=== PATIENT | female | born 1985 | race Two or more races ===

== ENCOUNTER → 2016-03-18 | Day surgery (SDC) | payer BC ==
[~2016-03-18] MED LIST: Diazepam TAB(*) 5 MG ONE; Diazepam TAB(*) 5 MG PO ONE; Onabotulinimtoxina 100 UNITS* VIAL ONE
[2016-03-18 11:32] VITALS: BP 140/93
--- NOTE | 2016-04-11 04:12 | OP ---
DATE OF OPERATION: 03/18/16 - [facility] DATE OF : 83 SURGEON: Kale Chang MD ELECTROENCEPHALOGRAPHIC TECHNOLOGIST: None. ANESTHESIA: None. PRE-OP DIAGNOSIS: Anal fissure. POST-OP DIAGNOSIS: Anal fissure. OPERATIVE PROCEDURE: Botox injection for treatment of anal fissure. SPECIMEN: None. DRAINS: None. COMPLICATIONS: None. DESCRIPTION OF PROCEDURE: The patient was brought to the operating room on the stretcher and positioned left lateral decubitus. After the time-out was performed, the buttocks were spread and finger was placed at the anal verge to palpate the internal and external sphincters. Alcohol prep was used on the skin and then a 30- gauge needle was used to inject the Botox, which was 100 units reconstituted in 2 cc of saline. The injection was performed first at the right lateral aspect of the internal anal sphincter. The patient was the flipped in right lateral decubitus and the process was repeated to the complete the injection of the additional 50 units into the left lateral aspect of the internal anal sphincter. The patient tolerated the procedure well and was transferred back to Recovery in a stable condition. [id number]/[facility] #: [id number] MTDD
== END | disposition home or self-care (01) ==
LOC: OR 10:59
PROVIDERS: ATTEND Surgery
DX: K60.2 Anal fissure, unspecified (principal)
CPT/HCPCS: A9270-GY; J0585

== ENCOUNTER 2016-05-25 19:36 | Emergency (ER) | payer BC ==
[2016-05-25] MEDS ORDERED: NS 0.9% 1000 ML* 1,000 ML IV ONE (20:06)
[2016-05-25] MEDS ORDERED: Ketorolac INJ* 30 MG/ML 1 ML VIAL IV ONE (20:06)
[2016-05-25 20:21] LABS: Hematocrit 44 % (35-47); Hemoglobin 14.6 g/dl (12.0-16.0); Mean Corpuscular HGB Conc 34 g/dl (31-36); Mean Corpuscular Hemoglobin 29 pg (27-31); Mean Corpuscular Volume 87 fL (80-97); Mean Platelet Volume 9 um3 (7.4-10.4); Red Blood Count 5.01 10^6/ul (4.0-5.4); Red Cell Distribution Width 14 % (10.5-15); White Blood Count 9.1 10^3/ul (3.5-10.8)
[2016-05-25 20:36] LABS: ALT 12 U/L (7-52); AST 15 U/L (13-39); Albumin 4.7 g/dL (3.2-5.2); Alkaline Phosphatase 52 U/L (34-104); Anion Gap 5 mmol/L (2-11); BUN/Creatinine Ratio 15.5 (8-20); Blood Urea Nitrogen 13 mg/dL (6-24); CO2 Carbon Dioxide 25 mmol/L (22-32); Calcium 9.4 mg/dL (8.6-10.3); Chloride 105 mmol/L (101-111); EGFR African American 101.7 (>60); EGFR Non-African American 79.1 (>60); Globulin 2.7 g/dL (2-4); Glucose 100 mg/dL (70-100); Potassium 3.8 mmol/L (3.5-5.0); Sodium 135 mmol/L (133-145); Total Protein 7.4 g/dL (6.4-8.9)
--- NOTE | 2016-05-25 21:23 | RAD ---
INDICATION: Right lower quadrant pain COMPARISON: Pelvic ultrasound dated May 22, 2016 TECHNIQUE: Real-time transabdominal and transvaginal ultrasound examination of the female pelvis including grayscale and Doppler color flow imaging. FINDINGS: Uterus: The uterus measures 9 x 4.2 x 4.3 cm. At the fundal height endometrium there is an isoechoic structure measuring 3.4 x 2.3 x 1.8 cm similar appearance to the previous ultrasound, likely a submucosal fibroid. Only the superior most portion of the IUD is visualized at the mid-level uterus. Ovaries: The right and left ovary measure 3.8 x 2.7 4.1 cm and 3.2 x 3.0 x 2.6 cm, respectively. Normal arterial and venous waveforms are identified. Appearance is within normal limits for the patient's age. There is no free fluid in the cul-de-sac. IMPRESSION: 1. Likely submucosal fundal height fibroid similar in appearance to the previous ultrasound. 2. Only the superior tip of the IUD was visualized at the mid-level uterus consistent with images acquired on May 22, 2016. 3. Otherwise normal and age-appropriate pelvic ultrasound.
--- NOTE | 2016-05-25 21:28 | ED ---
Ramin King Billy, scribed for Daniel Jones MD on 05/25/16 at 2001 . GI/ HPI - HPI Summary HPI Summary: Patient is a 30 year-old female coming to [facility] presenting with sharp right- sided abdominal pain for the last 1.5 hours. Severity 9/10. Patient states that she recently had an ultrasound which showed a 4.8cm ovarian cyst, and she states that her pain tonight is the same as previous episodes. She also has nausea tonight. Patient states that she has had vaginal spotting for the last week. Patient has an IUD. - History of Current Complaint Chief Complaint: EDOBProblems Time Seen by Provider: 05/25/16 19:56 Stated Complaint: ABD PAIN Hx Obtained From: Patient Onset/Duration: Started Hours Ago, Still Present Timing: Constant Severity: Moderate Current Severity: Moderate Pain Intensity: 9 Pain Characteristics: Sharp Associated Signs and Symptoms: Positive: Nausea Aggravating Factor(s): Nothing Alleviating Factor(s): Nothing - Allergy/Home Medications Allergies/Adverse Reactions: Allergies Allergy/AdvReac Type Severity Reaction Status Date / Time Acetaminophen [From Vicodin] Allergy Vomiting Verified 12/03/13 20:55 Hydrocodone [From Vicodin] Allergy Vomiting Verified 12/03/13 20:55 Midazolam [From Versed] Allergy See Comment Verified 12/03/13 20:55 PMH/Surg Hx/FS Hx/Imm Hx History: Reports: Other Problems/Disorders - ovarian cysts Opthamlomology History: Denies: Hx Legally Blind EENT History: Denies: Hx Hearing Problem Infectious Disease History: No Infectious Disease History: Denies: Traveled Outside the [place] in Last 30 Days - Family History Known Family History: Negative: Cardiac Disease, Hypertension, Diabetes - Social History Alcohol Use: Weekly Substance Use Type: Reports: None Smoking Status (MU): Never Smoked Tobacco Have You Smoked in the Last Year: No Review of Systems Positive: Abdominal Pain, Nausea Positive: see HPI All Other Systems Reviewed And Are Negative: Yes Physical Exam Triage Information Reviewed: Yes Vital Signs On Initial Exam: Initial Vitals Temp Pulse Resp BP Pulse Ox 96.7 F 75 18 138/86 100 05/25/16 19:38 05/25/16 19:38 05/25/16 19:38 05/25/16 19:38 03/26/17 19:38 Vital Signs Reviewed: Yes Appearance: Positive: Well-Appearing, Pain Distress - mild discomfort Skin: Positive: Warm Head/Face: Positive: Normal Head/Face Inspection Eyes: Positive: CORNEL ENT: Positive: Hearing grossly normal Neck: Positive: Supple Respiratory/Lung Sounds: Positive: Breath Sounds Present Cardiovascular: Positive: RRR Abdomen Description: Positive: Soft, Other: - mild rlq tenderness. Negative: Distended, Guarding Bowel Sounds: Positive: Present Musculoskeletal: Positive: Strength/ROM Intact Neurological: Positive: Sensory/Motor Intact, Alert, Oriented to Person Place, Time Psychiatric: Positive: Affect/Mood Appropriate Diagnostics - Vital Signs Vital Signs Temp Pulse Resp BP Pulse Ox 05/25/16 19:38 96.7 F 75 18 138/86 100 - Laboratory Lab Results: Lab Results 05/25/16 05/25/16 Range/Units 20:10 20:10 WBC 9.1 (3.5-10.8) 10^3/ul RBC 5.01 (4.0-5.4) 10^6/ul Hgb 14.6 (12.0-16.0) g/dl Hct 44 (35-47) % MCV 87 (80-97) fL MCH 29 (27-31) pg MCHC 34 (31-36) g/dl RDW 14 (10.5-15) % Plt Count 264 (150-450) 10^3/ul MPV 9 (7.4-10.4) um3 Neut % (Auto) 64.6 (38-83) % Lymph % (Auto) 26.0 (25-47) % [place] % (Auto) 8.2 (1-9) % Eos % (Auto) 0.8 (0-6) % Baso % (Auto) 0.4 (0-2) % Absolute Neuts (auto) 5.9 (1.5-7.7) 10^3/ul Absolute Lymphs (auto) 2.4 (1.0-4.8) 10^3/ul Absolute Monos (auto) 0.7 (0-0.8) 10^3/ul Absolute Eos (auto) 0.1 (0-0.6) 10^3/ul Absolute Basos (auto) 0 (0-0.2) 10^3/ul Absolute Nucleated RBC 0 10^3/ul Nucleated RBC % 0 Sodium 135 (133-145) mmol/L Potassium 3.8 (3.5-5.0) mmol/L Chloride 105 (101-111) mmol/L Carbon Dioxide 25 (22-32) mmol/L Anion Gap 5 (2-11) mmol/L BUN 13 (6-24) mg/dL Creatinine 0.84 (0.51-0.95) mg/dL Est GFR ( Amer) 101.7 (>60) Est GFR (Non-Af Amer) 79.1 (>60) BUN/Creatinine Ratio 15.5 (8-20) Glucose 100 (70-100) mg/dL Calcium 9.4 (8.6-10.3) mg/dL Total Bilirubin 0.40 (0.2-1.0) mg/dL AST 15 (13-39) U/L ALT 12 (7-52) U/L Alkaline Phosphatase 52 (34-104) U/L Total Protein 7.4 (6.4-8.9) g/dL Albumin 4.7 (3.2-5.2) g/dL Globulin 2.7 (2-4) g/dL Albumin/Globulin Ratio 1.7 (1-3) Beta HCG, Quant < 0.60 mIU/mL Result Diagrams: 05/25/16 20:10 05/25/16 20:10 Lab Statement: Any lab studies that have been ordered have been reviewed, and results considered in the medical decision making process. - Ultrasound No standard instances Ultrasound Interpretation Completed By: Radiologist - PELVIC ULTRASOUND: 1. Likely submucosal fundal height fibroid similar in appearance to the previous ultrasound. 2. Only the superior tip of the IUD was visualized at the mid-level uterus consistent with images acquired on May 22, 2016. 3. Otherwise normal and age-appropriate pelvic ultrasound. Re-Evaluation - Re-Evaluation First Eval Change: Improved - results d/w pt GIGU Course/Dx - Diagnoses Provider Diagnoses: Abdominal pain Discharge - Discharge Plan Condition: Stable Disposition: HOME Patient Education Materials: Abdominal Pain (ED), Ovarian Cyst (ED) Referrals: Gt Echeverria MD [Primary Care Provider] - The documentation as recorded by the Ramin velázquez Billy accurately reflects the service I personally performed and the decisions made by , Daniel Jones MD.
[2016-05-25 23:30] VITALS: BP 127/75
== END 2016-05-25 21:40 | disposition home or self-care (01) ==
LOC: ED 19:36
DX: R10.9 Unspecified abdominal pain (principal)
CPT/HCPCS: 36415; 76856; 80053; 84702; 85025; 96374; 99282; J1885

== ENCOUNTER 2016-07-05 15:34 | Emergency (ER) | payer BC ==
[2016-07-05 16:09] VITALS: BP 128/78
--- NOTE | 2016-07-05 16:17 | UC ---
Lower Extremity/Ankle HPI - HPI Summary HPI Summary: Injured R ankle on obstacle course this morning while sliding down object. Limping with difficulty. Did not feel a twist, simply a hard landing. Denies hx of sprains or fx on that ankle. - History of Current Complaint Stated Complaint: ANKLE INJURY Time Seen by Provider: 07/05/16 16:03 Hx Obtained From: Patient Hx Last Menstrual Period: 06/22/16 ?: No Onset/Duration: Sudden Onset Severity Initially: Moderate Severity Currently: Moderate Aggravating Factor(s): Standing, Ambulation Alleviating Factor(s): Rest Able to Bear Weight: Yes - Allergies/Home Medications Allergies/Adverse Reactions: Allergies Allergy/AdvReac Type Severity Reaction Status Date / Time Acetaminophen [From Vicodin] Allergy Vomiting Verified 12/03/13 20:55 Hydrocodone [From Vicodin] Allergy Vomiting Verified 12/03/13 20:55 Midazolam [From Versed] Allergy See Comment Verified 12/03/13 20:55 PMH/Surg Hx/FS Hx/Imm Hx - Surgical History Surgical History: None - Family History Known Family History: Negative: Cardiac Disease, Hypertension, Diabetes - Social History Occupation: Employed Full-time - [employer] Alcohol Use: Weekly Substance Use Type: None Smoking Status (MU): Never Smoked Tobacco Have You Smoked in the Last Year: No Review of Systems Constitutional: Negative Skin: Negative Eyes: Negative ENT: Negative Respiratory: Negative Cardiovascular: Negative Gastrointestinal: Negative Genitourinary: Negative Motor: Negative Neurovascular: Negative Musculoskeletal: Arthralgia Neurological: Negative Psychological: Negative All Other Systems Reviewed And Are Negative: Yes Physical Exam Triage Information Reviewed: Yes Appearance: Well-Appearing, No Pain Distress, Well-Nourished Vital Signs: Initial Vital Signs Temp 98.6 F 07/05/16 16:04 Pulse 93 07/05/16 16:04 Resp 18 07/05/16 16:04 BP 128/78 07/05/16 16:04 Pulse Ox 100 07/05/16 16:04 Vital Signs Reviewed: Yes Eye Exam: Normal Eyes: Positive: Conjunctiva Clear ENT Exam: Normal ENT: Positive: Normal ENT inspection, Hearing grossly normal, Pharynx normal, TMs normal Dental Exam: Normal Neck exam: Normal Neck: Positive: Supple, Nontender, No Lymphadenopathy Respiratory Exam: Normal Respiratory: Positive: Chest non-tender, Lungs clear, Normal breath sounds, No respiratory distress, No accessory muscle use Cardiovascular Exam: Normal Cardiovascular: Positive: RRR, No Murmur Musculoskeletal Exam: Other - L lateral malleolus tenderness, pain with tibial squeeze Musculoskeletal: Positive: ROM Intact Neurological Exam: Normal Psychological Exam: Normal Skin Exam: Normal Lower Extremity Course/Dx - Differential Dx/Diagnosis Provider Diagnoses: R ankle sprain Discharge - Discharge Plan Condition: Stable Disposition: HOME Patient Education Materials: Ankle Sprain (ED) Forms: *Work Release Referrals: Gt Echeverria MD [Primary Care Provider] - 2 Weeks Additional Instructions: Please see your primary care office in 1-2 weeks to recheck your ankle and discuss whether you could benefit from physical therapy. Sometimes "high" ankle sprains (up where your pain is) have a longer healing time. Use ice and elevation along with ibuprofen for pain control.
--- NOTE | 2016-07-05 16:44 | RAD ---
INDICATION: Inability to bear weight after a fall COMPARISON: None. TECHNIQUE: 3 views of the right ankle were obtained. FINDINGS: There is a small amount of swelling overlying the fibular malleolus. The bones are normal alignment. Joint spaces appear maintained. No fracture is seen. IMPRESSION: MILD SOFT TISSUE SWELLING OVERLYING THE FIBULAR MALLEOLUS WITHOUT RADIOGRAPHICALLY APPARENT FRACTURE OR DISLOCATION If the patient's symptoms persist, follow-up imaging is recommended.
== END 2016-07-05 17:03 | disposition home or self-care (01) ==
LOC: UCEAST 15:34
DX: S93.401A Sprain of unspecified ligament of right ankle, initial encounter (principal); Y93.A5 Activity, obstacle course; X58.XXXA Exposure to other specified factors, initial encounter
CPT/HCPCS: 99213; G0463

== ENCOUNTER 2016-08-21 11:10 | Observation (INO) | payer BC ==
[2016-08-21] MEDS ORDERED: Scopolamine 1.5 mg* PATCH ONE (11:34)
[2016-08-21] MEDS ORDERED: Ibuprofen TAB* 400 MG ONE (11:34)
[2016-08-21] MEDS ORDERED: Ondansetron INJ* 2 MG/ML VIAL ONE ×3 (11:34→17:55)
[2016-08-21 11:41] LABS: UR Preg Internal Control QC Line Present
[2016-08-21] MEDS ORDERED: EPHEDrine (Pressors)* 50 MG/ML VIAL ONE (12:27)
[2016-08-21] MEDS ORDERED: Ketorolac INJ* 30 MG/ML 1 ML VIAL ONE ×4 (12:27→12:59)
[2016-08-21] MEDS ORDERED: Lidocaine 2% PF * 5 ML VIAL ONE (12:27)
[2016-08-21] MEDS ORDERED: Propofol* 10 MG/ML 20 ML BTL IV PUSH ONE (12:27)
[2016-08-21] MEDS ORDERED: Propofol* 500 MG/50 ML BTL ONE (12:27)
[2016-08-21] MEDS ORDERED: Dexamethasone IV* 4 MG/ML 1 ML (4 MG) ONE (12:27)
[2016-08-21] MEDS ORDERED: fentaNYL* 50 MCG/ML 2 ML VIAL (100 MCG VIAL) ONE ×4 (12:27→16:54)
[2016-08-21] MEDS ORDERED: KETAMINE HCL* 50 MG/ML 10 ML VIAL ONE (12:28)
[2016-08-21] MEDS ORDERED: Succinylcholine* 20 MG/ML 10 ML VIAL ONE (12:29)
[2016-08-21] MEDS ORDERED: Atropine 1MG/ML INJ* 1 ML VIAL ONE (12:29)
[2016-08-21] MEDS ORDERED: Sevoflurane* 1 BTL ONE (12:39)
[2016-08-21] MEDS: LORazepam TAB(*) 1 MG PO SCH ×2 (12:41→19:36)
[2016-08-21] MEDS ORDERED: Clindamycin 900 MG IVPREMIX(* 900 MG/50 ML SDV IV ONE (12:47)
[2016-08-21] MEDS ORDERED: Iohexol 350 (CONTRAST) 200 ML MDV IV ONE (12:59)
[2016-08-21] MEDS ORDERED: Lidocaine 1% INJ* 10 MG/ML 30 ML SDV ONE (13:00)
[2016-08-21] MEDS ORDERED: nitroGLYCERIN DRIP* 250 ML ONE (13:00)
[2016-08-21] MEDS ORDERED: Heparin 2 UNITS/ML IVPREMIX* 3,000 ML IV ONE (13:00)
[2016-08-21] MEDS ORDERED: fentaNYL* 50 MCG/ML 5 ML VIAL (250 MCG VIAL) ONE (15:10)
[2016-08-21] MEDS ORDERED: HYDROmorphone* 1 MG/ML 1 ML SYR ONE ×5 (15:47→19:33)
[2016-08-21] MEDS ORDERED: HYDROmorphone* 1 MG/ML 1 ML SYR IV PRN ×2 (16:15→19:36)
[2016-08-21] MEDS ORDERED: Ondansetron INJ* 2 MG/ML VIAL IV PRN ×2 (16:15→16:36)
[2016-08-21] MEDS ORDERED: Acetaminophen IV 1GM/100ML * 100 ML IVPB ONE (16:15)
[2016-08-21] MEDS ORDERED: HYDROmorphone PCA* 20 MG/20 ML PCA.SYRING ONE (16:17)
[2016-08-21] MEDS ORDERED: Acetaminophen IV 1GM/100ML * 100 ML ONE (16:20)
[2016-08-21] MEDS ORDERED: Acetaminophen TAB* 325 MG PO PRN (16:36)
[2016-08-21] MEDS: fentaNYL* 50 MCG/ML 2 ML VIAL (100 MCG VIAL) IV PRN ×4 (16:41→17:02)
[2016-08-21] MEDS ORDERED: LORazepam INJ* 2 MG/ML 1 ML VIAL IV PUSH ONE (18:00)
--- NOTE | 2016-08-21 18:27 | HP ---
CC: Dr. Lopes; Dr. Mendoza * HISTORY AND PHYSICAL: DATE OF ADMISSION: 08/21/16 PRIMARY CARE PROVIDER: Dr. Lopes. ATTENDING PHYSICIAN WHILE IN THE HOSPITAL: Onelia Mancera MD * (report dictated by Tremaine Mills NP). CHIEF COMPLAINT: Uterine fibroid embolization. HISTORY OF PRESENT ILLNESS: Ms. Alvarez is a 30-year-old female patient who for some time has been having difficulty with heavy menstruation. In addition to this, also has been having trouble with uterine fibroids. She has a history of EDS, that is Soto-Danlos syndrome. She came under the care of Dr. Mendoza as she has been again having significant bleeding with her menses and having significant pain. The patient had done extensive research and wanted to pursue UFE. Dr. Mendoza did refer the patient to Dr. Kulkarni to go over options for uterine fibroids as she was of child-bearing age and wanted to make sure that she was making an informed choice and after discussion with Dr. Kulkarni, Dr. Mendoza, and the patient reviewing the different options, she did decide and ultimately opt to go with the UFE which she underwent today. She was evaluated in the PACU. She is denying having any chest pain or shortness of breath, but she says she has a significant amount of cramping and it feels like her menstrual cramps in the pelvic area. She denies any groin pain or pain at the puncture site from the UFE. She denies having any nausea or any vomiting. Denies having any recent fevers or cough. She says that besides the pain, she is feeling well. Denies any lightheadedness or dizziness. We were asked to evaluate for admission. PAST MEDICAL HISTORY: Significant for: 1. Uterine fibroids. 2. EDS. PAST SURGICAL HISTORY: 1. She just had a UFE done today. 2. She has had a left knee arthroscopy. HOME MEDICATIONS: According to the list that she provided include: 1. Fexofenadine 1 tablet p.o. daily as needed. 2. B12 injection monthly. 3. Vitamin C 500 mg p.o. daily. ALLERGIES TO MEDICATIONS: Include VICODIN and VERSED. FAMILY HISTORY: Reviewed and noncontributory. SOCIAL HISTORY: She does not smoke. She occasionally drinks alcohol. Surrogate decision maker is her mother. REVIEW OF SYSTEMS: There is no documented fever. She denies having any significant weight change. There was no double vision. She denies having any rhinorrhea. No sore throat. No thyroid enlargement. Denies having any chest pain. There is no orthopnea. No nocturnal dyspnea. There is no abdominal pain. No nausea. No vomiting. No dysuria. No frequency. There is no seizure. No loss of consciousness. No pruritus and no skin ulcerations. Review of 14 systems completed, all others negative. PHYSICAL EXAMINATION GENERAL: At this time, Ms. Alvarez is a 30-year-old female patient. She is sitting in the PACU stretcher. She does not appear to be in any acute distress. She is awake and alert. VITAL SIGNS: Blood pressure 130/68, pulse 86, respirations 16, O2 sat 99%, and temperature 98.8. HEENT: Head is atraumatic and normocephalic. Eyes: EOMs are intact. Sclerae are anicteric and not pale. Throat: Oral mucosa appears to be moist. No oropharyngeal erythema. NECK: Supple. LUNGS: Clear to auscultation. No wheezes, rales, or rhonchi. HEART: Sounds S1, S2. Regular rate and rhythm. No murmurs, rubs, or gallops. ABDOMEN: Soft, it was flat. Bowel sounds hypoactive. EXTREMITIES: Distal CSM checks are intact to lower extremities. She can move the right lower extremity and the left lower extremity, but right now she is lying in a flat position because of the recent UFE and the activity restrictions. NEUROLOGIC: She is awake, alert, and oriented x3. Tongue midline. Grinder are equal. No gross focal deficits. SKIN: Intact with the exception to her right groin, she has a puncture site from the UFE that is clean, dry, and intact. Distal CSM checks are intact. LABORATORY DATA: Preoperatively showed a negative test. She had a WBC of 9.1, RBC of 5.01, hemoglobin 14.6, hematocrit 44, platelet count of 264, 000. Sodium 138, potassium 4.1, chloride 106, bicarb 26, BUN 16, creatinine 0.8. Urine preop was negative. Old medical records were reviewed. ASSESSMENT AND PLAN: Ms. Alvarez is a 30-year-old female patient coming in to the vascular services for an elective uterine fibroid embolization today, procedure was underwent by Dr. Mendoza. We were asked to evaluate for admission. She will be admitted under observation status for: 1. Uterine fibroid embolization: I will defer the management of this to Dr. Mendoza and his team. The 21 DEALER has been ordered for pain management. I have ordered some p.r.n. Zofran for the patient. 2. Uterine fibroids: She can follow up with Dr. Mendoza and her primary HYDROLOGY PROFESSOR. 3. Soto-Danlos syndrome: At this point, again we will continue with her current medical regimen. No active issues. 3. History of depression, anxiety: Continue Wellbutrin. 4. Code status: Full code. 5. Fluids, electrolytes, and nutrition: She can have a regular diet. TIME SPENT: Time spent on the admission was 40 minutes; greater than half the time was spent [id number] with the patient obtaining my history and physical, other half the time spent going over the plan of care with the patient and implementing plan of care. I did discuss the plan of care with my attending, Dr. Mancera; she is in agreement. TREMAINE MILLS, KARISSA [id number]/[facility] #: [id number] SIMONE
[2016-08-21] MEDS ORDERED: NS 0.9% 1000 ML* 1,000 ML IVPB SCH (19:38)
[2016-08-21] MEDS ORDERED: HYDROmorphone PCA* 20 MG/20 ML PCA.SYRING PCA SCH (20:00)
[2016-08-21] MEDS ORDERED: PROCHLORPERAZINE INJ 5 MG/ML 2 ML VIAL IV PRN (20:05)
[2016-08-21] MEDS ORDERED: PROCHLORPERAZINE INJ 5 MG/ML 2 ML VIAL ONE (20:08)
[2016-08-21] MEDS ORDERED: Naloxone* 0.4 MG/ML 1 ML VIAL IV PUSH ONE (20:47)
[2016-08-21] MEDS: Naloxone* 0.4 MG/ML 1 ML VIAL ONE ×2 (20:51→21:25)
[2016-08-21] MEDS: Ondansetron INJ* 2 MG/ML VIAL IV SCH (20:58)
[2016-08-21] MEDS ORDERED: Ketorolac INJ* 15 MG/ML 1 ML VIAL IV PUSH SCH (21:00)
[2016-08-21] MEDS ORDERED: Naloxone* 0.4 MG/ML 1 ML VIAL IV PUSH PRN (21:54)
[2016-08-21] MEDS: NS 0.9% 1000 ML* 1,000 ML IV SCH (23:00)
[2016-08-22] MEDS: Ondansetron INJ* 2 MG/ML VIAL IV SCH (02:47)
[2016-08-22] MEDS ORDERED: Ketorolac INJ* 30 MG/ML 1 ML VIAL IV PUSH SCH (03:00)
[2016-08-22] MEDS: NS 0.9% 1000 ML* 1,000 ML IV SCH (06:11)
[2016-08-22] MEDS ORDERED: Metoclopramide IV* 5 MG/ML 2 ML VIAL IV ONE (06:20)
[2016-08-22] MEDS ORDERED: Metoclopramide IV* 5 MG/ML 2 ML VIAL ONE (06:25)
--- NOTE | 2016-08-22 08:05 | PN ---
Progress Note - Progress Note Date of Service: 08/22/16 SOAP: Subjective: Pain improved. About 4/10 when not moving too much. No nausea or emesis. Has eaten solid food (including [place] soup). +void. Required dose of Narcan O/N for O2 saturation of 34% Objective: Selected Entries 08/22/16 03:10 Temperature 98.2 F Temperature Oral Source Pulse Rate 70 Respiratory 16 Rate Blood Pressure 112/64 (mmHg) O2 Sat by Pulse 100 Oximetry NAD, AAO x 3 Low abdomen is soft, minimally tender to palpation +Ecchymosis at groin, soft, mildly tender to palpation 2+ pulse right HEAT SET OPERATOR, pop, DP Assessment: 30 YOF POD #1 Uterine Fibroid Embolization with pain and nausea now reasonably controlled. Plan: 1. Transition from IV to PO. 2. Encourage ambulation with assistance. 3. Diet. 4. IR to see patient again late morning/early p.m.
[2016-08-22] MEDS ORDERED: oxyCODONE/Acetamin 5/325 MG* TAB PO PRN (08:07)
[2016-08-22] MEDS ORDERED: Ketorolac TAB * 10 MG TAB PO SCH (09:00)
[2016-08-22] MEDS ORDERED: Ondansetron TAB* 4 MG PO SCH (09:00)
[2016-08-22] MEDS ORDERED: BuPROPion XL* 150 MG TAB.XL PO SCH ×2 (09:00)
[2016-08-22 12:50] VITALS: BP 121/71
--- NOTE | 2016-08-22 14:10 | RAD ---
CPT II Codes: 6045F Procedure(s) performed: * Pelvic arteriogram including the lower abdominal aorta, bilateral iliac arteries including the proximal portions of the superficial femoral arteries and femoral profundi. * Catheter arteriography of the bilateral uterine arteries. * Catheter embolization of the bilateral uterine arteries. Date of service: August 21, 2016 Indication for procedure: Heavy vaginal bleeding in the presence of at least one endometrial fibroid. Comparison: Most recent pelvic ultrasound May 25, 2016 Contrast: 95 mL Omnipaque 300 Fluoroscopy Time: 31.1 minutes Vessels Accessed: Percutaneous access was obtained with ultrasound guidance in the right common femoral artery in the retrograde. Catheter arteriography, with the catheter tip located within the lumen of the following arteries, was performed at the Aorta, Bilateral Internal Iliac Arteries and Bilateral Uterine Arteries. Anesthesia: Anesthesia support was provided by anesthesiology. Please see anesthesiology note for details. Conscious sedation time: Timeout: 1330 hours Case end: 1545 hours Total conscious sedation time: 2 hours and 15 minutes Additional medications: * 400 mcg IA nitroglycerin injected intermittently throughout the course of the procedure to alleviate arterial spasm. * Intra-arterial Toradol, 15 mg injected into each uterine artery, for a total of 30 mg intra-arterial.. * Intravenous Toradol, 30 mg. * Transdermal scopolamine patch 1.5 mg applied to the mastoid process prior to the procedure beginning. * A total of 4 mg Zofran was administered intravenously. PROCEDURE NOTE AND INTRAPROCEDURAL IMAGING FINDINGS: Immediately prior to the procedure the patient signed consent after thoroughly discussing all risks and benefits. The patient was positioned on the fluoroscopy table in the supine position and the bilateral groins were shaved, prepped and draped in standard sterile fashion. Using fluoroscopic imaging the location of the right common femoral head was marked externally with a skin marker on the patient's groin. Utilizing sonographic guidance and palpation the right common femoral artery was cannulated overlying the right femoral head with an 21-gauge needle. An ultrasound image was saved. A microwire was slowly and smoothly advanced to the aortic bifurcation under fluoroscopic imaging. No buckling of the wire was visualized to indicate dissection. Over the wire a 5-Burundian catheter was advanced into the artery, the inner stiffener removed and the microwire was replaced with a 0.035" Bentsen wire which was advanced into the aorta. Finally the 5 Burundian catheter was exchanged for a 5 Burundian sidearm sheath. Over the 0.035" Bentsen wire a "pigtail" multi sidehole injection catheter was advanced to the infrarenal abdominal aorta. An aortogram was performed visualizing the lower abdominal aorta and complete bilateral iliac arterial system as far as the bifurcation of the femoral arteries. Arteriography demonstrated normal aortoiliac arterial anatomy and enlarged uterine arteries. Early filling of the patient's uterine fibroids was observed. No focal or large segment aneurysmal dilatation was noted that may be consistent with a patient with Soto Danlos syndrome. After completion of the aortogram, the wire was reinserted and the pigtail catheter was removed. Utilizing a Bentson wire and 5-Burundian Rim catheter the left common iliac artery was accessed. Over the wire the rim catheter was exchanged for a 5 Burundian angled tip catheter and this was used to access the left internal iliac artery. With the tip of the catheter in the proximal most portion of the left internal iliac artery, angiography was performed to detail the branches of the left internal iliac artery which had depicted the uterine artery providing blood flow to the patient's uterine fibroid. Arteriograms in multiple oblique projections were performed to best discern the branch point of the uterine artery. Once the uterine artery was identified, a Renegade High-flow microcatheter and microwire were advanced into the parent catheter and, in conjunction with contrast angiography, the uterine artery was identified and selected with the micro catheter. Prior to embolization, contrast injection into the horizontal portion of the uterine artery demonstrated no large, obvious collateral blood flow to the ovary or a definite cervicovaginal branch descending inferiorly. Intra-arterial nitroglycerin was injected intermittently to alleviate arterial spasm. Under fluoroscopic control approximately 3/4 vial of 500 micron Embozenes and 1/2 vial 700 micron Embozenes were slowly injected into the uterine artery to near complete stasis. [place] through the embolization 15 mg of Toradol was injected intra-arterially. The microcatheter was pulled back into the more proximal descending portion of the uterine artery and contrast angiography depicted near complete stasis of the uterine artery. The microcatheter was removed and replaced with an 0.035" guidewire. Utilizing the guidewire and the 5-Burundian angled tipped catheter, a "Sakina's loop" was formed in the lower aorta above the bifurcation. With the loop formed and the wire within the catheter, the system was slowly retracted gaining access to the ipsilateral right internal iliac artery. Contrast angiography with the tip of the 5-Burundian catheter in the proximal most portion of the right internal iliac artery demarcated the right uterine artery and multiple oblique projections were obtained to best depict the origin of the uterine artery. Once the uterine artery was identified, a Renegade High-flow microcatheter and microwire were advanced into the parent catheter and, in conjunction with contrast angiography, the uterine artery was identified and selected with the micro catheter. Prior to embolization, contrast injection into the horizontal portion of the uterine artery demonstrated no large, obvious collateral blood flow to the ovary or a definite cervicovaginal branch descending inferiorly. Intra-arterial nitroglycerin was injected intermittently to alleviate arterial spasm. Under fluoroscopic control approximately 3/4 vial of 500 micron Embozenes and 1/2 vial 700 micron Embozenes were slowly injected into the uterine artery to near complete stasis. [place] through the embolization 15 mg of Toradol was injected intra-arterially. The microcatheter was pulled back into the more proximal descending portion of the uterine artery and contrast angiography depicted near complete stasis of the uterine artery. The microcatheter and wire were removed and the 0.035" wire was readvanced to the tip of the catheter. The system was then advanced towards the aorta. The contralateral left common iliac artery was accessed and the "Sakina loop" was removed from the catheter. Finally the catheter and wire were removed. The access sheath was removed and pressure was held at the common femoral arteriotomy for approximately 20 minutes. There were no signs of bleeding at the right groin access site and the site was dressed with sterile gauze and Tegaderm. The patient tolerated the procedure well and was transferred to the short stay recovery unit in stable condition for routine overnight observation and pain and nausea control. SUMMARY OF PROCEDURE, IMAGING FINDINGS AND INTERVENTIONS PERFORMED: 1. Diagnostic studies performed: * Arterial access was obtained at the right common femoral artery in the retrograde direction (i.e. towards the heart) with ultrasound guidance. A sonographic image was recorded. * Diagnostic catheter angiography (necessary to perform the appropriate interventions) was performed with the catheter tip in the aorta, bilateral common iliac arteries, bilateral internal iliac arteries and bilateral uterine arteries. * Catheter arteriography was performed of the lower abdominal aorta, bilateral iliac arterial system and specifically the bilateral uterine arteries. 2. Interpretation of diagnostic studies performed: * There is no focal or long segment aneurysmal dilatation of any of the aortoiliac arteries that would be characteristic of a patient with type IV Soto Danlos syndrome. * Bilaterally the uterine arteries were identified. The right uterine artery was dominant relative to the left. * Arteriography depicted the patient's single uterine fibroid which appears to measure up to 6 cm in diameter on angiography. 3. Surgical interventions performed: * Near stasis embolization of the bilateral uterine arteries utilizing a total of \\R\\1 1/2 vials of 500 um Embozene particles and one vial of 700 um Embozene particles.. 4. Interpretation of interventions performed: * Final arteriography demonstrated near complete stasis of the bilateral uterine arteries.. PLAN: 1. The patient will be admitted to short stay surgical unit for routine overnight observation including pain and nausea control. 2. Outpatient clinical and imaging follow-up according to the Interventional Radiology protocol.
--- NOTE | 2016-08-23 08:23 | DS ---
CC: Dr. Lopes; Dr. Chris Mendoza * DISCHARGE SUMMARY: DATE OF ADMISSION: 08/21/16 DATE OF DISCHARGE: 08/22/16 PRIMARY CARE PROVIDER: Dr. Lopes. INTERVENTIONAL RADIOLOGIST: Dr. Chris Mendoza. DISCHARGING PROVIDER: ANTWON Montemayor SUPERVISING PHYSICIAN: Dr. Jameel Morris.* (DICTATED BY ANTWON MONTEMAYOR) PRIMARY DISCHARGE DIAGNOSES: 1. Status post uterine fibroid embolization. 2. Excessive respiratory depression secondary to opiates, now resolved. SECONDARY DISCHARGE DIAGNOSES: 1. Soto-Danlos syndrome. 2. History of anxiety and depression. DISCHARGE MEDICATIONS: 1. Vitamin C 500 mg p.o. daily. 2. Wellbutrin extended release 150 mg p.o. daily. 3. Vitamin B12 1000 mcg IM monthly. 4. Docusate 100 mg p.o. b.i.d. x7 days. 5. Merline D 1 tablet p.o. daily as needed for sinus congestion. 6. Ibuprofen 600 mg p.o. q.8 hours after Toradol has been completed. 7. Toradol 10 mg p.o. q.6 hours for 3 days. 8. Zofran 4 mg p.o. q.6 hours x5 days. 9. Scopolamine patch 1.5 mg apply transdermally every 72 hours. 10. Percocet 5/325 two tablets p.o. q.6 hours as needed for pain. Medication changes: 1. Start docusate. 2. Start ibuprofen. 3. Start Toradol. 4. Start Zofran. 5. Start scopolamine. 6. Start Percocet. HOSPITAL IMAGING: None. HOSPITAL COURSE: This is a 30-year-old female with Soto-Danlos syndrome, depression, anxiety, and uterine fibroids with abnormal uterine bleeding, who underwent uterine fibroid embolization with Dr. Mendoza, 08/21/16. Her procedure was uncomplicated and the patient was admitted postoperatively to the surgical floor for pain and nausea management. The patient became excessively sedated overnight with reduced respiratory rates and oxygen desaturations. She was treated with a total of 2 doses of Narcan to which she responded well. Morning of discharge, the patient reports that her pain and nausea are manageable. No additional complications. The patient does not appear to be excessively sedated. No confusion. DISPOSITION AND FOLLOWUP PLAN: The patient is being discharged to home where her mother who is a retired nurse is available to help. She received instructions on medications as listed above. She specifically received instructions to not use additional ibuprofen while taking the Toradol for the first 3 days. She will follow up with Dr. Mendoza in his office following the procedure. Follow up with her primary care provider if necessary. ANTWON MONTEMAYOR [id number]/[facility] #: [id number] MTDKerri
== END 2016-08-22 12:00 | disposition home or self-care (01) ==
LOC: SDS 11:10 → SSU 16:36
PROVIDERS: ADMIT Radiology Diagnostic Radiology; ATTEND Radiology Diagnostic Radiology
DX: D25.9 Leiomyoma of uterus, unspecified (principal); Q79.6 Ehlers-Danlos syndromes; F32.9 Major depressive disorder, single episode, unspecified
CPT/HCPCS: 37243; 75625; 76937; 81025; 96361; 96374; 96375; 96376; A9270-GY; C1725; C1887; G0378; J0330; J0461; J0780; J1100; J1170; J1644; J1885; J2001; J2060; J2270; J2310; J2405; J2704; J3010

== ENCOUNTER 2016-10-17 00:58 | Emergency (ER) | payer SELFPAY ==
[2016-10-17] MEDS ORDERED: NS 0.9% 1000 ML* 1,000 ML IV SCH (01:30)
[2016-10-17 01:39] LABS: Hematocrit 38 % (35-47); Hemoglobin 12.7 g/dl (12.0-16.0); Mean Corpuscular HGB Conc 34 g/dl (31-36); Mean Corpuscular Hemoglobin 29 pg (27-31); Mean Corpuscular Volume 85 fL (80-97); Mean Platelet Volume 9 um3 (7.4-10.4); Red Blood Count 4.45 10^6/ul (4.0-5.4); Red Cell Distribution Width 14 % (10.5-15); White Blood Count 7.6 10^3/ul (3.5-10.8)
[2016-10-17 02:09] LABS: ALT 12 U/L (7-52); AST 16 U/L (13-39); Albumin 4.4 g/dL (3.2-5.2); Alkaline Phosphatase 51 U/L (34-104); Anion Gap 7 mmol/L (2-11); BUN/Creatinine Ratio 22.9 (8-20); Blood Urea Nitrogen 19 mg/dL (6-24); CO2 Carbon Dioxide 25 mmol/L (22-32); Calcium 9.5 mg/dL (8.6-10.3); Chloride 104 mmol/L (101-111); EGFR African American 103.1 (>60); EGFR Non-African American 80.2 (>60); Globulin 2.5 g/dL (2-4); Glucose 104 mg/dL (70-100); Lipase 27 U/L (11.0-82.0); Potassium 3.7 mmol/L (3.5-5.0); Sodium 136 mmol/L (133-145); Total Protein 6.9 g/dL (6.4-8.9)
[2016-10-17] MEDS ORDERED: Iohexol 300* (CONTRAST) 10 ML SDV IV ONE (02:16)
[2016-10-17 02:38] LABS: Urine Bacteria Absent (Absent); Urine Bilirubin Negative (Negative); Urine Glucose Negative (Negative); Urine Nitrite Negative (Negative)
[2016-10-17 03:40] VITALS: BP 107/78
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
== END 2016-10-17 03:40 | disposition home or self-care (01) ==
LOC: ED 00:58
DX: R10.12 Left upper quadrant pain (principal); R11.0 Nausea
CPT/HCPCS: 36415; 74177; 80053; 81003; 81015; 83690; 84702; 85025; 85610; 85730; 87086; 99283; Q9967

== ENCOUNTER 2018-04-13 08:36 | Emergency (ER) | payer BC, OTHER ==
[2018-04-13] MEDS ORDERED: Albuterol/Ipratropium NEB.SOL* Albuterol 2.5 MG/Ipratropium 0.5 MG 3 ML INH ONE (09:26)
[2018-04-13 10:01] LABS: ABS Basophils 0 10^3/ul (0-0.2); ABS Eosinophils 0 10^3/ul (0-0.6); ABS Lymphocytes 3.7 10^3/ul (1.0-4.8); ABS Monocytes 0.7 10^3/ul (0-0.8); ABS Neutrophils 4.9 10^3/ul (1.5-7.7); ABS Nucleated RBC 0 10^3/ul; Eosinophil % 0.3 %; Hematocrit 41 % (35-47); Hemoglobin 13.9 g/dl (12.0-16.0); Lymphocyte % 39.8 %; Mean Corpuscular HGB Conc 34 g/dl (31-36); Mean Corpuscular Hemoglobin 29 pg (27-31); Mean Corpuscular Volume 85 fL (80-97); Mean Platelet Volume 8.8 fL (7.4-10.4); Nucleated Red Blood Cells % 0.1; Platelet Count 362 10^3/ul (150-450); Red Blood Count 4.79 10^6/ul (4.00-5.40); Red Cell Distribution Width 13 % (10.5-15); White Blood Count 9.3 10^3/ul (3.5-10.8)
[2018-04-13 10:15] VITALS: BP 136/88
[2018-04-13 10:16] LABS: Albumin 4.6 g/dL (3.2-5.2); Albumin/Globulin Ratio 1.6 (1-3); BUN/Creatinine Ratio 17.9 (8-20); C Reactive Protein 2.21 mg/L (<8.01); EGFR Non-African American 67.7 (>60); Globulin 2.8 g/dL (2-4); Potassium 3.3 mmol/L (3.5-5.0); Total Bilirubin 0.3 mg/dL (0.2-1.0); Total Protein 7.4 g/dL (6.4-8.9)
--- NOTE | 2018-04-13 10:41 | ED ---
Shortness of Breath - HPI Summary HPI Summary: Patient is a 32-year-old female with no significant PMH presenting to the ED with worsening SOB over the course of 2 weeks. States symptoms began with rhinorrhea, postnasal drip, mild sinus pressure and cough. She also endorses a fever 5 days, but denies any currently. Over the past week, she has had worsening SOB, worse with exertion, better with rest. She denies any cough currently and states she has only coughed a few times, producing small amounts of sputum last week. She has taken the week off from work due to weakness. She continues to eat and drink okay. Patient works nights and stating she is more fatigued than usual. Denies any body aches. Denies any sweats or chills. Denies any urinary symptoms. Denies any CP, abdominal pain, nausea, vomiting , diarrhea, constipation. No history of asthma or COPD. Patient is a nonsmoker. - History of Current Complaint Chief Complaint: EDShortnessOfBreath Time Seen by Provider: 04/13/18 08:55 Hx Obtained From: Patient Onset/Duration: Gradual Onset Timing: Constant Current Severity: Moderate Dyspnea At: Exertion Alleviating Factors: Other - steroids - Risk Factors Pulmonary Embolism: Negative Cardiac: Negative - Allergy/Home Medications Allergies/Adverse Reactions: Allergies Allergy/AdvReac Type Severity Reaction Status Date / Time hydrocodone Allergy Vomiting Verified 04/13/18 09:54 midazolam Allergy Unknown Verified 04/13/18 09:54 Reaction Details PMH/Surg Hx/FS Hx/Imm Hx Previously Healthy: Yes Endocrine/Hematology History: Denies: Hx Diabetes Cardiovascular History: Denies: Hx Hypertension Respiratory History: Reports: Hx Asthma Denies: Hx Chronic Obstructive Pulmonary Disease (COPD) History: Reports: Other Problems/Disorders - ovarian cysts Denies: Hx Renal Disease Sensory History: Denies: Hx Legally Blind, Hx Hearing Problem Opthamlomology History: Denies: Hx Legally Blind - Surgical History Surgery Procedure, Year, and Place: UTERINE ABLASION - JULY 2016 - Immunization History Hx Pertussis Vaccination: No Immunizations Up to Date: Yes Infectious Disease History: No Infectious Disease History: Denies: Traveled Outside the [place] in Last 30 Days - Family History Known Family History: Negative: Cardiac Disease, Hypertension, Diabetes - Social History Occupation: Employed Full-time Lives: With Family Alcohol Use: Weekly Substance Use Type: Reports: None Smoking Status (MU): Never Smoked Tobacco Have You Smoked in the Last Year: No Review of Systems Positive: Fatigue. Negative: Fever, Chills, Skin Diaphoresis Negative: Diplopia, Erythema Negative: Nasal Discharge Negative: Palpitations, Chest Pain Positive: Shortness Of Breath, Cough Genitourinary: Negative Positive: no symptoms reported, see HPI Negative: Arthralgia, Myalgia Skin: Negative Neurological: Negative All Other Systems Reviewed And Are Negative: Yes Physical Exam Triage Information Reviewed: Yes Vital Signs On Initial Exam: Initial Vitals Temp Pulse Resp BP Pulse Ox 98.8 F 88 18 147/92 99 04/13/18 08:37 04/13/18 08:37 04/13/18 08:37 04/13/18 08:37 04/13/18 08:37 Vital Signs Reviewed: Yes Appearance: Positive: Well-Appearing, Well-Nourished Skin: Positive: Warm, Skin Color Reflects Adequate Perfusion Head/Face: Positive: Normal Head/Face Inspection Eyes: Positive: EOMI, CORNEL Neck: Positive: Supple, No Lymphadenopathy Respiratory/Lung Sounds: Positive: Clear to Auscultation, Decreased Breath Sounds Cardiovascular: Positive: RRR, Pulses are Symmetrical in both Upper and Lower Extremities Musculoskeletal: Positive: Normal, Strength/ROM Intact Neurological: Positive: Sensory/Motor Intact, Alert, Oriented to Person Place, Time, Speech Normal Psychiatric: Positive: Normal, Affect/Mood Appropriate AVPU Assessment: Alert Diagnostics - Vital Signs Vital Signs Temp Pulse Resp BP Pulse Ox 04/13/18 09:32 136/88 04/13/18 09:30 99 100 04/13/18 09:27 98 18 100 04/13/18 09:14 99 F 18 04/13/18 08:37 98.8 F 88 18 147/92 99 - Laboratory Lab Results: Lab Results 04/13/18 04/13/18 04/13/18 Range/Units 09:43 09:43 09:43 WBC 9.3 (3.5-10.8) 10^3/ul RBC 4.79 (4.00-5.40) 10^6/ul Hgb 13.9 (12.0-16.0) g/dl Hct 41 (35-47) % MCV 85 (80-97) fL MCH 29 (27-31) pg MCHC 34 (31-36) g/dl RDW 13 (10.5-15) % Plt Count 362 (150-450) 10^3/ul MPV 8.8 (7.4-10.4) fL Neut % (Auto) 52.5 % Lymph % (Auto) 39.8 % [place] % (Auto) 7.0 % Eos % (Auto) 0.3 % Baso % (Auto) 0.4 % Absolute Neuts (auto) 4.9 (1.5-7.7) 10^3/ul Absolute Lymphs (auto) 3.7 (1.0-4.8) 10^3/ul Absolute Monos (auto) 0.7 (0-0.8) 10^3/ul Absolute Eos (auto) 0 (0-0.6) 10^3/ul Absolute Basos (auto) 0 (0-0.2) 10^3/ul Absolute Nucleated RBC 0 10^3/ul Nucleated RBC % 0.1 D-Dimer, Quantitative < 200 (Less Than 230) ng/mL Sodium 140 (135-145) mmol/L Potassium 3.3 L (3.5-5.0) mmol/L Chloride 105 (101-111) mmol/L Carbon Dioxide 24 (22-32) mmol/L Anion Gap 11 (2-11) mmol/L BUN 17 (6-24) mg/dL Creatinine 0.95 (0.51-0.95) mg/dL Est GFR ( Amer) 82.0 (>60) Est GFR (Non-Af Amer) 67.7 (>60) BUN/Creatinine Ratio 17.9 (8-20) Glucose 99 (70-100) mg/dL Calcium 10.0 (8.6-10.3) mg/dL Total Bilirubin 0.30 (0.2-1.0) mg/dL AST 21 (13-39) U/L ALT 36 (7-52) U/L Alkaline Phosphatase 40 (34-104) U/L C-Reactive Protein 2.21 (<8.01) mg/L Total Protein 7.4 (6.4-8.9) g/dL Albumin 4.6 (3.2-5.2) g/dL Globulin 2.8 (2-4) g/dL Albumin/Globulin Ratio 1.6 (1-3) Result Diagrams: 04/13/18 09:43 04/13/18 09:43 Lab Statement: Any lab studies that have been ordered have been reviewed, and results considered in the medical decision making process. Course/Dx - Course Course Of Treatment: During core stream, the patient is evaluated for shortness of breath which is been worsening over the course of 2 weeks. DuoNeb nebulized treatment with no relief per patient. Labs obtained which showed no elevated white count. D-dimer negative at < 200. Chest x-ray obtained which shows no acute cardiopulmonary disease. Lungs clear, however decreased breath sounds bilaterally. Patient appears well and nontoxic. She is given azithromax and prednisone and albuterol inhaler for SOB x 2 weeks. - Diagnoses Differential Diagnosis/HQI/PQRI: Positive: Bronchitis Provider Diagnoses: Shortness of breath Discharge - Sign-Out/Discharge Documenting (check all that apply): Patient Departure Patient Received Moderate/Deep Sedation with Procedure: No - Discharge Plan Condition: Stable Disposition: HOME Prescriptions: Albuterol HFA INHALER* [Ventolin HFA Inhaler*] 1 puff INH Q4H PRN #1 mdi MDD 6 PRN Reason: Sob/Wheezing Azithromyxin EMMETT (NF) [Z-Emmett (Zithromax) 250 mg tabs #6] 2 tab PO .TODAY, THEN 1 DAILY #6 tab predniSONE TAB* [Deltasone TAB*] 50 mg PO DAILY #5 tab MDD 1 Patient Education Materials: Shortness of Breath (ED) Forms: *Work Release Referrals: Perla Lopes MD [Primary Care Provider] - Additional Instructions: Prednisone once daily 5 days Do not take this before bed Azithromycin, 2 tabs today and 1 tab daily 4 days Albuterol inhaler as needed for shortness of breath about every 4 hours If you develop any worsening or changing symptoms, return to the ED - Billing Disposition and Condition Condition: STABLE Disposition: Home
== END 2018-04-13 10:45 | disposition home or self-care (01) ==
LOC: ED 08:36
DX: R06.02 Shortness of breath (principal); R53.83 Other fatigue; R05 Cough
CPT/HCPCS: 36415; 71046; 80053; 85025; 85379; 86140; 99283; A9270-GY